=== PATIENT | male | born 1940 | race Caucasian/White ===

== ENCOUNTER 2020-07-10 01:03 | Emergency (ER) | payer MEDICARE ==
[~2020-07-10 01:03] MED LIST: ACYCLOVIR PO; ALENDRONATE SOD35 MG PO; ASPIRIN EC81 MG PO; CERTAGEN1 EACH PO; COQ-10100 MG PO; HYDROCODON-ACE1 EAC2 PO; KEFLEX250 MG PO; LASIX20 MG PO; LIPITOR40 M1 PO; OS-CAL500 MG PO; PREDNISONE 10MG10 MG PO; PREDNISONE 1MG T1 MG PO; PREDNISONE 20MG20 MG PO; RANEXA500 MG PO; TENORMIN50 MG PO; VITAMIN B-12500 MCG PO; XARELTO20 MG PO
[2020-07-10 02:06] LABS: BASOPHIL 0.4 % (0-2); EOSINOPHIL 0.7 % (0-7); HCT 32.5 % (42.0-52.0); HGB 10.2 g/dl (13.2-18.0); LYMPHOCYTE 3.8 % (15-48); MCH 30.8 pg (25.0-31.0); MCHC 31.4 g/dL (32.0-36.0); MCV 98.2 fL (78.0-100.0); MONOCYTE 8.5 % (0-12); MPV 9.9 fL (6.0-9.5); NEUTROPHIL 84.4 % (41-80); NRBC 4.1; PLT 211 K/uL (150-400); RBC 3.31 M/uL (4.70-6.00); RDW 17.5 % (11.5-14.0)
[2020-07-10 02:07] LABS: WBC 14.8 K/uL (4.0-10.5)
[2020-07-10 02:16] LABS: INR 1.2 (0.9-1.2); PROTHROMBIN TIME 14.4 SECONDS (11.4-13.6); PTT 24.9 SECONDS (22.2-34.7)
[2020-07-10 02:18] LABS: D-DIMER 2.41 ug/mLFEU (0.00-0.41)
[2020-07-10 02:23] LABS: ALBUMIN 2.3 g/dL (3.4-5.0); BILIRUBIN - TOTAL 1.2 mg/dL (0.2-1.0); BUN/CREAT RATIO (CALC) 11.2 RATIO; CREATININE 2.77 mg/dL (0.67-1.17); POTASSIUM 5.1 mmol/L (3.5-5.1); TOTAL PROTEIN 6.3 g/dL (6.4-8.2)
[2020-07-10 03:00] LABS: LACTIC ACID 5.1 mmol/L (0.4-1.9)
== END 2020-07-10 10:30 | disposition other institution (70) ==
LOC: FER 01:03
PROVIDERS: Emergency Medicine Emergency Medical Services
DX: I95.9 Hypotension, unspecified (principal); R09.02 Hypoxemia; R65.21 Severe sepsis with septic shock; I48.91 Unspecified atrial fibrillation; I51.7 Cardiomegaly; Z79.01 Long term (current) use of anticoagulants; Z88.2 Allergy status to sulfonamides; Z20.822 Contact with and (suspected) exposure to COVID-19
CPT/HCPCS: 36415; 36600; 71045; 71275; 72193; 80053; 82803; 83605; 83880; 84145; 84484; 85025; 85379; 85610; 85730; 93005; 96365; 96375; 96376; J1644; J2543; J3010; J3370; J7030; J7050; Q9967; U0002

== ENCOUNTER 2020-10-29 19:35 | Emergency (ER) | payer MEDICARE | END 2020-10-29 19:36 | disposition home or self-care (01) | LOC: FER 19:35 | DX: I46.9 Cardiac arrest, cause unspecified (principal); I10 Essential (primary) hypertension; I48.91 Unspecified atrial fibrillation; Z85.038 Personal history of other malignant neoplasm of large intestine; Z85.79 Personal history of other malignant neoplasms of lymphoid, hematopoietic and related tissues | CPT/HCPCS: 99285; J0171 ==